=== PATIENT | female | born 1985 | race Caucasian/White ===

== ENCOUNTER 2023-02-20 12:17 | Emergency (ER) | payer OTHER, SELFPAY ==
[2023-02-20 12:25] VITALS: PULSE 64; RESP 23; O2SAT 100
[2023-02-20 12:29] VITALS: BP 138/80; PULSE 63; RESP 16; TEMP 36.4; O2SAT 100; BMI 25.0
--- NOTE | 2023-02-20 12:29 | DI.RAD.S_ITS ---
PROCEDURE: XR CHEST 1V INDICATIONS: chest pain TECHNIQUE: One view of the chest was acquired. COMPARISON: None. FINDINGS: Surgical changes and devices: None. Lungs and pleura: Lungs are clear. No pleural effusions or pneumothorax. Mediastinum: Mediastinal contours appear normal. Heart size is normal. Bones and chest wall: No suspicious bony lesions. Overlying soft tissues appear unremarkable. IMPRESSION: No evidence acute pulmonary process. Dictated by: Zach Hayes M.D. on 02/20/2023 at 12:51 Approved by: Zach Hayes M.D. on 02/20/2023 at 12:52
[2023-02-20 12:30] VITALS: BP 128/80; PULSE 59; RESP 20; O2SAT 99
--- NOTE | 2023-02-20 12:32 | ED_ITS ---
HPI - Chest Pain General Chief Complaint: Chest Pain Stated Complaint: chest pains/nurse refferred Time Seen by Provider: 02/20/23 12:32 History of Present Illness HPI narrative: Patient is a 37-year-old female without significant past medical history presents today with epigastric pain. He reports ongoing for the last 2-3 days. She says every time she eats or drinks within 2nd she has pain in her right upper quadrant underneath her ribs. However today she noticed with coffee and water she feels like she has a lump in her epigastric region. It constant in nature it does not radiate. Denies any palpitations. No nausea or vomiting. He tried to take Tums 2 days ago did not feel that it was very helpful she took some naproxen also not very helpful. Pain does not change or worsen with any sort of position. Related Data Previous Rx's Medication Instructions Recorded omeprazole 20 mg capsule,delayed 20 mg PO DAILY #30 caps 02/20/23 release Patient History Social History Smoking Status: Never smoker Exam Narrative Exam Narrative: GENERAL: Alert pleasant 37-year-old female HEENT: Head atraumatic,EOMI, pupils reactive, face symmetric, moist mucous membranes CARDIOVASCULAR: Regular rate and rhythm without murmurs, rubs or gallops. RESPIRATORY: Breath sounds equal bilaterally, no wheezes rales or rhonchi. ABDOMEN: Soft, nontender. Normoactive bowel sounds all 4 quadrants. No guarding or rebound. No right upper quadrant minimal epigastric pain EXTREMITIES: Normal range of motion, no clubbing or edema. Neurovascularly intact NEUROLOGICAL: Alert and oriented x4.Normal gait and speech. SKIN: Warm, dry, no laceration, no petechiae, no rashes or lesions. Initial Vital Signs Initial Vital Signs: Vital Signs Pulse Rate 64 02/20/23 12:25 Respiratory Rate 23 02/20/23 12:25 Pulse Oximetry 100 02/20/23 12:25 Scores HEART Score Heart Score history: Slightly Suspicious Heart Score EKG: Normal Heart Score Age: < 45 years old Heart Score risk factors: No known risk factors Heart Score troponin: < or = to normal limit Heart Score Total: 0 PERC Score Age greater than or equal to 50 years: No Heart rate greater than or equal to 100 bpm: No Room Air O2 Sat less than 95%: No Unilateral leg swelling: No Recent trauma or surgery: No Hemoptysis: No Prior PE or DVT: No Hormone Use: No Total PERC Score: 0 Course Orders Ordered: ED Orders 02/20/23 12:27 Complete Blood Count AUTO DIFF Stat Comprehensive Metabolic Panel Stat Lipase Stat Magnesium Stat PTT Partial Thromboplastin Carlitos Stat Prothrombin Time INR Stat Troponin & CK Cardiac Panel Stat 02/20/23 12:29 XR chest 1V Stat EKG-12 Lead Stat 02/20/23 12:52 US abdomen limited Stat Discontinued Medications Aspirin (Aspirin 81 Mg Chew Tab) 324 mg PO NOW ONE Stop: 02/20/23 12:30 Last Admin: 02/20/23 12:53 Dose: 324 mg Documented By: SAILAJA Ketorolac Tromethamine (Ketorolac 30 Mg/Ml Vial) 15 mg IV NOW ONE Stop: 02/20/23 12:53 Last Admin: 02/20/23 12:56 Dose: 15 mg Documented By: SAILAJA Pantoprazole Sodium (Pantoprazole 40 Mg Vial) 40 mg IV NOW ONE Stop: 02/20/23 12:53 Last Admin: 02/20/23 12:57 Dose: 40 mg Documented By: SAILAJA Vital Signs Vital signs: Vital Signs - 8 hr 02/20/23 12:25 02/20/23 12:29 02/20/23 12:30 Temperature 97.6 F Pulse Rate 64 63 59 L Respiratory Rate 23 16 20 Blood Pressure 138/80 Pulse Oximetry 100 100 99 Oxygen Delivery Method Room Air 02/20/23 12:30 02/20/23 13:00 02/20/23 13:00 Temperature Pulse Rate 68 Respiratory Rate 20 Blood Pressure 128/80 121/84 Pulse Oximetry 100 Oxygen Delivery Method 02/20/23 13:30 02/20/23 13:30 02/20/23 14:00 Temperature Pulse Rate 59 L 56 L Respiratory Rate 20 16 Blood Pressure 112/79 119/72 Pulse Oximetry 98 Oxygen Delivery Method Room Air MDM - Chest Pain Lab Data 02/20/23 12:27 02/20/23 12:27 Labs: Lab Results 02/20/23 Range/Units 12:27 WBC 8.8 (4.5-11.0) X10^3/uL RBC 4.58 (4.0-5.2) X10^6/uL Hgb 13.2 (12.0-16.0) g/dL Hct 38.7 (36-46) % MCV 84.5 (80-100) fL MCH 28.8 (26-34) PG MCHC 34.1 (30-36) % RDW 12.8 (11.6-14.8) % Plt Count 277 (150-400) X10^3/uL Neut % (Auto) 65.0 (50-75) % Lymph % (Auto) 26.9 (25-40) % Henderson % (Auto) 5.4 (3-14) % Eos % (Auto) 1.5 L (2-4) % Baso % (Auto) 1.2 (0-2) % Neut # (Auto) 5700 (7970-0216) /uL Lymph # (Auto) 2400 (3771-9554) /uL Henderson # (Auto) 500 (0-900) /uL Eos # (Auto) 100 (0-450) /uL Baso # (Auto) 100 (0-100) /uL PT 13.3 H (10.1-12.7) SECONDS INR 1.2 (0.9-1.3) APTT 35 (26-36) SECONDS Sodium 136 L (137-145) mmol/L Potassium 3.7 (3.4-5.1) mmol/L Chloride 98 (98-107) mmol/L Carbon Dioxide 29 (22-32) mmol/L BUN 17 (7-17) mg/dL Creatinine 0.72 (0.52-1.04) mg/dL Estimated GFR > 60 (>60) mL/min BUN/Creatinine Ratio 23.6 H (6-22) Glucose 109 H (70-100) mg/dL Calcium 9.7 (8.4-10.2) mg/dL Magnesium 1.8 (1.6-2.3) mg/dL Total Bilirubin 0.9 (0.2-1.3) mg/dL AST 69 H (14-36) IU/L ALT 62 H (<35) IU/L Alkaline Phosphatase 59 (38-126) U/L Total Creatine Kinase 73 (30-135) U/L Troponin I < 0.012 (0.01-0.034) ng/mL Total Protein 8.2 (6.3-8.2) g/dL Albumin 4.7 (3.5-5.0) g/dL Globulin 3.5 (1.7-4.1) g/dL Albumin/Globulin Ratio 1.3 (1.0-2.8) Lipase 66 (23-300) U/L Imaging Data Chest x-ray: Radiologist's Impression: PROCEDURE: XR CHEST 1V INDICATIONS: chest pain TECHNIQUE: One view of the chest was acquired. COMPARISON: None. FINDINGS: Surgical changes and devices: None. Lungs and pleura: Lungs are clear. No pleural effusions or pneumothorax. Mediastinum: Mediastinal contours appear normal. Heart size is normal. Bones and chest wall: No suspicious bony lesions. Overlying soft tissues appear unremarkable. IMPRESSION: No evidence acute pulmonary process. Dictated by: Zach Hayes M.D. on 02/20/2023 at 12:51 US - abdomen: Radiologist's Impression: PROCEDURE: US ABDOMEN LIMITED INDICATIONS: RIGHT UPPER QUADRANT PAIN TECHNIQUE: Real-time scanning was performed of the abdominal and retroperitoneal organs, with image documentation. COMPARISON: None. FINDINGS: Liver: Liver is normal in size and homogeneous in echotexture. Gallbladder: Unremarkable. Biliary ducts: Intrahepatic bile ducts are non-dilated. Extrahepatic bile duct caliber measures 2 mm. Normal is 6-7 mm or less in diameter, or 10 mm or less post-cholecystectomy. Pancreas: Visualized portions of the pancreas are sonographically normal. IMPRESSION: Unremarkable right upper quadrant ultrasound. No gallbladder pathology. Dictated by: Benitez Jose M.D. on 02/20/2023 at 13:25 ECG Data Interpretation: Normal sinus rhythm rate 58 IN interval 134 QRS [address] changes MDM Narrative Medical decision making narrative: Patient healthy 37-year-old female presents today some epigastric pain. Her last couple days she is had some right upper quadrant pain which is definitely worse with eating and drinking. She is not tender on exam ultrasound is negative. Blood work has been reviewed overall reassuring without elevation in bilirubin all the liver enzymes are mildly elevated in the 60s. Chest x-ray EKG and troponin are all negative. She is a low risk heart score low risk perc score. I suspect since this is exacerbated with food and drink possibility of acid reflux. However she also reports that she has been on doxycycline for about 4-5 weeks for acne. This can cause esophagitis it may or may not be related as well. This can also cause pericarditis but she is not having signs or symptoms of pericarditis. Discharge Plan Departure Patient Disposition: Home Clinical Impression: Acid reflux Instructions: DI for Gastroesophageal Reflux Disease (GERD) Activity Restrictions/Additional Instructions: *You have been diagnosed with acid reflux *What to do: At this time I suspect that you have some acid reflux this may or may not be related to your doxycycline. Discusses the your provided. *Continue to take medications as directed Omeprazole 20 mg once daily *Follow up with your primary care provider in 2-3 days or call [phone] *Return to ER if you should have increasing pain nausea vomiting shortness of or any new, worsening or concerning symptoms Prescriptions: New omeprazole 20 mg capsule,delayed release(DR/EC) 20 mg PO DAILY Qty: 30 0RF Stand Alone Forms: Patient Portal/API
[2023-02-20 12:36] LABS: Add Manual Diff / Slide Review NO; Basophils Absolute Auto 100 /uL (0-100); Basophils Percent Auto 1.2 % (0-2); Eosinophils Absolute Auto 100 /uL (0-450); Eosinophils Percent Auto 1.5 % (2-4); Hematocrit 38.7 % (36-46); Hemoglobin 13.2 g/dL (12.0-16.0); Lymphocytes Absolute Auto 2400 /uL (1100-4500); Lymphocytes Percent Auto 26.9 % (25-40); Mean Corpuscular HGB Conc 34.1 % (30-36); Mean Corpuscular Hemoglobin 28.8 PG (26-34); Mean Corpuscular Volume 84.5 fL (80-100); Monocytes Absolute Auto 500 /uL (0-900); Monocytes Percent Auto 5.4 % (3-14); Neutrophils Absolute Auto 5700 /uL (1500-7000); Platelet Count 277 X10^3/uL (150-400); Red Blood Cell Count 4.58 X10^6/uL (4.0-5.2); Red Cell Distribution Width 12.8 % (11.6-14.8); White Blood Cell Count 8.8 X10^3/uL (4.5-11.0)
[2023-02-20 12:42] LABS: INR 1.2 (0.9-1.3); Prothrombin Time 13.3 SECONDS (10.1-12.7)
[2023-02-20 12:45] LABS: PTT Partial Thromboplastin Tim 35 SECONDS (26-36)
[2023-02-20 12:47] LABS: Alanine Aminotransferase 62 IU/L (<35); Albumin 4.7 g/dL (3.5-5.0); Albumin Globulin Ratio 1.3 (1.0-2.8); Alkaline Phosphatase 59 U/L (38-126); Aspartate Aminotransferase 69 IU/L (14-36); BUN Creatinine Ratio 23.6 (6-22); Bilirubin Total 0.9 mg/dL (0.2-1.3); Blood Urea Nitrogen 17 mg/dL (7-17); Calcium 9.7 mg/dL (8.4-10.2); Carbon Dioxide 29 mmol/L (22-32); Chloride 98 mmol/L (98-107); Creatine Kinase 73 U/L (30-135); Estimated Glomerular Filt Rate > 60 mL/min (>60); Globulin 3.5 g/dL (1.7-4.1); Glucose 109 mg/dL (70-100); HEMOLYSIS 18 (0-50); Lipase 66 U/L (23-300); Magnesium 1.8 mg/dL (1.6-2.3); Potassium 3.7 mmol/L (3.4-5.1); Sodium 136 mmol/L (137-145); Total Protein 8.2 g/dL (6.3-8.2)
--- NOTE | 2023-02-20 12:52 | DI.US.S_ITS ---
PROCEDURE: US ABDOMEN LIMITED INDICATIONS: RIGHT UPPER QUADRANT PAIN TECHNIQUE: Real-time scanning was performed of the abdominal and retroperitoneal organs, with image documentation. COMPARISON: None. FINDINGS: Liver: Liver is normal in size and homogeneous in echotexture. Gallbladder: Unremarkable. Biliary ducts: Intrahepatic bile ducts are non-dilated. Extrahepatic bile duct caliber measures 2 mm. Normal is 6-7 mm or less in diameter, or 10 mm or less post-cholecystectomy. Pancreas: Visualized portions of the pancreas are sonographically normal. IMPRESSION: Unremarkable right upper quadrant ultrasound. No gallbladder pathology. Dictated by: Benitez Jose M.D. on 02/20/2023 at 13:25 Approved by: Benitez Jose M.D. on 02/20/2023 at 13:26
[2023-02-20] MEDS: ASPIRIN 81 MG CHEW TAB 324 MG PO (12:53)
[2023-02-20] MEDS: KETOROLAC 30 MG/ML VIAL 15 MG IV (12:56)
[2023-02-20 12:57] LABS: Troponin I < 0.012 ng/mL (0.01-0.034)
[2023-02-20] MEDS: PANTOPRAZOLE 40 MG VIAL IV (12:57)
[2023-02-20 13:00] VITALS: BP 121/84; PULSE 68; RESP 20; O2SAT 100
--- NOTE | 2023-02-20 13:08 | PC.NURSE ---
US at bedside
[2023-02-20 13:30] VITALS: BP 112/79; PULSE 59; RESP 20
[2023-02-20 14:00] VITALS: BP 119/72; PULSE 56; RESP 16; O2SAT 98
== END 2023-02-20 14:13 | disposition home or self-care (01) ==
PROVIDERS: Emergency Provider Emergency Medicine
DX: K21.9 Gastro-esophageal reflux disease without esophagitis (principal); R07.9 Chest pain, unspecified
CPT/HCPCS: 36415; 71045; 76705; 80053; 82550; 83690; 83735; 84484; 85025; 85610; 85730; 93005; 93010; 96374; 96375; 99284; C9113; J1885

== ENCOUNTER → 2024-05-07 09:17 | Outpatient (CLI) | payer OTHER, SELFPAY ==
[2024-05-07 09:56] LABS: Hematocrit 38.9 % (36-46); Hemoglobin 13.2 g/dL (12.0-16.0); Mean Corpuscular HGB Conc 33.8 % (30-36); Mean Corpuscular Volume 85.7 fL (80-100); Platelet Count 343 X10^3/uL (150-400); Red Blood Cell Count 4.54 X10^6/uL (4.0-5.2); Red Cell Distribution Width 12.6 % (11.6-14.8); White Blood Cell Count 6.8 X10^3/uL (4.5-11.0)
[2024-05-07 10:10] LABS: Hemoglobin A1C% w Est Avg Glu 4.8 % (4.0-6.0)
[2024-05-07 11:06] LABS: Alanine Aminotransferase 43 IU/L (<35); Albumin 4.7 g/dL (3.5-5.0); Albumin Globulin Ratio 1.7 (1.0-2.8); Alkaline Phosphatase 53 U/L (38-126); Aspartate Aminotransferase 43 IU/L (14-36); Bilirubin Total 1.1 mg/dL (0.2-1.3); Blood Urea Nitrogen 17 mg/dL (7-17); Calcium 9.7 mg/dL (8.4-10.2); Carbon Dioxide 29 mmol/L (22-32); Chloride 101 mmol/L (98-107); Cholesterol 177 mg/dL (140-199); Estimated Glomerular Filt Rate > 60 mL/min (>60); Globulin 2.7 g/dL (1.7-4.1); Glucose 96 mg/dL (70-100); HDL Cholesterol 87 mg/dL (40-60); HEMOLYSIS < 15 (0-50); LDL Cholesterol Calculated 80 mg/dL (<100); Potassium 4.1 mmol/L (3.4-5.1); Sodium 137 mmol/L (137-145); Total Protein 7.4 g/dL (6.3-8.2); Triglycerides 50 mg/dL (35-150)
[2024-05-07 11:37] LABS: Ferritin 30 ng/mL (6-137)
[2024-05-08 09:39] LABS: Insulin Level Total 5.4 uIU/mL (2.6-24.9)
== END ==
PROVIDERS: PCP Family Medicine; Referring Provider Family Medicine; Visit Provider Family Medicine
DX: N92.4 Excessive bleeding in the premenopausal period (principal); E65 Localized adiposity; Z51.81 Encounter for therapeutic drug level monitoring; Z83.3 Family history of diabetes mellitus; E88.810 Metabolic syndrome; E66.9 Obesity, unspecified
CPT/HCPCS: 36415; 80053; 80061; 82627; 82728; 83036; 83525; 85027

== ENCOUNTER → 2024-06-06 07:44 | Outpatient (CLI) | payer OTHER, SELFPAY ==
--- NOTE | 2024-06-06 07:46 | DI.MG.S_ITS ---
BILATERAL DIGITAL SCREENING MAMMOGRAM 3D/2D WITH CAD: 06/06/2024 CLINICAL: Baseline exam. Routine screening. No prior exams were available for comparison. The breasts are heterogeneously dense, which may obscure small masses (category c / 51-75% glandular tissue). Current study was also evaluated with a Computer Aided Detection (CAD) system. No significant masses, calcifications, or other findings are seen in either breast. IMPRESSION: NEGATIVE There is no mammographic evidence of malignancy. A 1 year screening mammogram is recommended. Based on the Tyrer Cuzick model (a risk assessment model) the patient's lifetime risk is 12.5% and her 10 year risk is 1.7%. According to the ACR, ACS, and NCCN guidelines, an annual breast MRI exam along with mammogram is recommended if the patient's lifetime risk is 20% or greater. This exam was interpreted at Station ID: [id number]. NOTE: For mammograms, a report in lay terms will be sent to the patient. Approximately 15% of breast malignancies will not be visualized mammographically. In the management of a palpable breast mass, a negative mammogram must not discourage biopsy of a clinically suspicious lesion. Electronically Signed By: Jerry ramirez/dino:06/07/2024 08:04:04 letter sent: Normal Exam ACR BI-RADS Category 1: Negative
== END ==
PROVIDERS: PCP Family Medicine; Referring Provider Family Medicine; Visit Provider Family Medicine
DX: Z12.31 Encounter for screening mammogram for malignant neoplasm of breast (principal); R92.333 Mammographic heterogeneous density, bilateral breasts
CPT/HCPCS: 77063; 77067

== ENCOUNTER 2024-09-23 02:38 | Emergency (ER) | payer OTHER, SELFPAY ==
--- NOTE | 2024-09-23 02:43 | ED.GENADULT ---
HPI - General Adult General Chief complaint: Animal Bite Stated complaint: Possible rabies exposure Time Seen by Provider: 09/23/24 02:42 History of Present Illness HPI narrative: 40-year-old female no significant past medical history presents to the emergency department from home for evaluation about exposure, she states that she awoke and there was a bat flying in the room, this was at around 2:00 a.m.. Denies any exposure to this, no history of rabies immunoglobulin and rabies vaccine. Denies any symptoms at this time. Patient denies any other symptoms at this time. Related Data Allergies Allergy/AdvReac Type Severity Reaction Status Date / Time Sulfa (Sulfonamide Allergy Verified 09/23/24 02:51 Antibiotics) Review of Systems Review of Systems Narrative: General: Positive bad exposure Denies fever, chills, weight loss HEENT: Denies headache, eye drainage, eye irritation, head trauma, sore throat, voice change Cardiovascular: Denies any chest pain, palpitations, tachycardia Respiratory: Denies any shortness of breath, cough, wheeze, stridor GI/: Denies any abdominal pain, nausea, vomiting, diarrhea, bright red blood per rectum, melanotic stools, urinary frequency, urinary retention, dysuria, hematuria MSK: Denies any joint pain, muscle pains, swelling Skin: Denies any rashes, lesions, discoloration Neuro: Denies any headache, lightheadedness, dizziness, fainting, weakness Psych: Denies SI/HI Patient History Social History Smoking Status: Never smoker Exam Narrative Exam Narrative: General: Cooperative, well-developed, not in acute distress HEENT: Normocephalic, atraumatic, PERRLA, normal sclera, eyelids normal Neck: Active full range of motion, atraumatic Chest: Normal to inspection, negative crepitus, no overlying erythema ecchymosis Respiratory: Normal respiratory effort, not in acute respiratory distress, clear to auscultation bilaterally negative cough, wheeze, tachypnea, rhonchi, rales Cardiology: Regular rate rhythm negative gallop, murmur, rubs GI/: No tenderness to palpation, soft, non rigid, normal to inspection, exam deferred MSK: Full active range of motion in all 4 extremities, atraumatic, no tenderness to palpation of any bony prominences Skin: No rashes or lesions noted Neuro: Alert awake oriented x3, moves all 4 extremities spontaneously, cranial nerves intact, able to answer all questions appropriately follows commands appropriately Psych: Cooperative, negative suicidal or homicidal ideations Initial Vital Signs Initial Vital Signs: Vital Signs Temperature 98.4 F 09/23/24 02:52 Pulse Rate 64 09/23/24 02:52 Respiratory Rate 15 09/23/24 02:52 Blood Pressure 117/77 09/23/24 02:52 Pulse Oximetry 100 09/23/24 02:52 Oxygen Delivery Method Room Air 09/23/24 02:52 Course Orders Ordered: Discontinued Medications Rabies Immune Globulin (Rabies Immune Globulin 300 Unit/Ml 3ml Vial) 1,400 unit IM NOW ONE Stop: 09/23/24 02:54 Rabies Vaccine (Rabies Vaccine (Rabavert) 2.5 Units Syringe) 2.5 units IM .ONCE ONE Stop: 09/23/24 02:49 Vital Signs Vital signs: Vital Signs - 8 hr 09/23/24 02:52 Temperature 98.4 F Pulse Rate 64 Respiratory Rate 15 Blood Pressure 117/77 Pulse Oximetry 100 Oxygen Delivery Method Room Air Medical Decision Making Differential Diagnosis Differential Diagnosis: Rabies exposure, bat exposure MDM Narrative Medical decision making narrative: 40-year-old female without any significant past medical history presents to the emergency department from home for evaluation about exposure, states that she woke up to a bat flying around the room at around 8:00 p.m.. Denies any contact with a bad, no history of immunoglobulin or rabies vaccines previously. Given the fact that patient woke up to a bat it was recommended that patient obtain immunoglobulin and rabies series, she verbalized understanding risks benefits of this, patient decided to proceed with immunoglobulin and vaccine series, she understands need for return to complete rabies series. Strict return precautions given verbalized understanding of this and agrees to being discharged home with outpatient follow up Discharge Plan Departure Patient Disposition: Home Clinical Impression: Encounter for prophylactic rabies immune globin Instructions: DI for Rabies Vaccine Activity Restrictions/Additional Instructions: You have received your first dose of the Rabies vaccine today [09.23.24] please come back on the following days for the additional vaccine series: Day 3: [6.1.25] Day 7: [6..25] Day 14: [..] Please follow up with the primary care doctor Please read the discharge instructions sheet carefully and bring all papers to all doctor follow-up visits, as it may contain information that your doctor may want to see. Disease processes change and evolve, if your symptoms worsen or if you develop any new symptoms that are concerning to you please return for evaluation. Your evaluation today does not show any evidence of any life-threatening/serious illnesses requiring admission to the hospital or surgery. Please follow-up with your doctor for re-evaluation in approximately 1 day. Seek immediate medical attention for any worrisome symptoms. *If you do not have a primary care provider please contact the [facility] Resource line at [phone]. They will ask some questions about your medical history and help get you set up with a doctor in the community. Stand Alone Forms: Patient Portal/API/Survey
[2024-09-23 02:52] VITALS: BP 117/77; PULSE 64; RESP 15; TEMP 36.9; O2SAT 100; BMI 25.0
[2024-09-23] MEDS: RABIES VACCINE (RABAVERT) 2.5 UNITS SYRINGE IM (03:24)
[2024-09-23] MEDS: RABIES IMMUNE GLOBULIN 150 UNIT/ML 1440 UNIT IM (03:27)
--- NOTE | 2024-09-23 04:03 | PC.NURSE ---
Pt became light headed and dizzy with the administration of Rabies immunoglobulin. pt's bp dropped to 84/45. layed patient back, pt slowed her breathing. Blood pressure back up to 103/56 and feeling better. provider aware
[2024-09-23 04:05] VITALS: BP 103/56; PULSE 68; RESP 16; O2SAT 98
== END 2024-09-23 04:06 | disposition home or self-care (01) ==
PROVIDERS: Emergency Provider Student in an Organized Health Care Education/Training Program
DX: Z20.3 Contact with and (suspected) exposure to rabies (principal); Z23 Encounter for immunization
CPT/HCPCS: 90377; 90471; 90675; 96372; 99283

== ENCOUNTER 2024-09-26 16:08 | Emergency (ER) | payer OTHER, SELFPAY ==
[2024-09-26 16:13] VITALS: BP 117/70; PULSE 64; RESP 16; TEMP 36.8; O2SAT 100; BMI 25.3
[2024-09-26] MEDS: RABIES VACCINE (RABAVERT) 2.5 UNITS SYRINGE IM (16:47)
--- NOTE | 2024-09-26 18:00 | ED.RECABL ---
HPI - Recheck/Abnormal Lab/Rx General Chief Complaint: Recheck/Abnormal Lab/Rx Stated Complaint: Need Rabies Shot #2 Time Seen by Provider: 09/26/24 17:56 Source: patient Mode of arrival: Ambulatory History of Present Illness HPI narrative: 39-year-old female here for 2nd rabies shot, had slept in household were bat was, no bites or injuries known. She had received her 1st rabies shot, here for 2nd shot, neck shot due 09/30/2024. Related Data Home Medications Medication Instructions Recorded Confirmed benzoyl peroxide 5 % topical 1 applic topical QAM 04/02/24 06/01/24 cleanser clindamycin phosphate 1 % lotion 1 applic topical QAM 04/02/24 06/01/24 spironolactone 50 mg tablet 50 mg PO ONCE PM 04/02/24 06/01/24 sumatriptan succinate 25 mg tablet 25 mg PO ONCE PRN migraine headache 04/02/24 06/01/24 Previous Rx's Medication Instructions Recorded albuterol sulfate 90 mcg/actuation 2 puff inhalation Q4-6H PRN 06/01/24 aerosol inhaler shortness of breath or wheezing #8.5 grams dexamethasone 2 mg tablet 2 mg PO DAILY PRN URI wheeze #6 06/01/24 tabs Allergies Allergy/AdvReac Type Severity Reaction Status Date / Time Sulfa (Sulfonamide AdvReac Intermediate Hives Verified 09/26/24 16:13 Antibiotics) Patient History Medical History (Updated 09/26/24 @ 18:03 by Dominic Purcell MD) Asthma (~1999) Anxiety (~1999) Chicken pox Migraine headache with aura Acne vulgaris Therapeutic drug monitoring Family history of diabetes mellitus (DM) Surgical History (System 09/23/24 @ 10:45 by Rodrigo Cobos) Anesthesia History of section Family History (System 09/23/24 @ 10:45 by Rodrigo Cobos) Father Hypertension Mental health problem Mother Hyperlipidemia Sister Mental health problem Grandmother Diabetes mellitus History of heart disease Stroke Grandfather History of heart disease Grandmother Mental health problem Social History (System 09/23/24 @ 10:45 by Rodrigo Cobos) alcohol intake: current (2-3 drinks per week ) substance use type: does not use alcohol intake frequency: 0-2 drinks per day Exam Narrative Exam Narrative: GENERAL: No distress, cooperative HEAD: Atraumatic. Normocephalic. EYES: Pupils equal round and reactive. Extraocular motions intact. No scleral icterus. No injection or drainage. ENT: Nose without bleeding, purulent drainage. Airway patent. NECK: Trachea midline. CARDIOVASCULAR: Regular rate and rhythm without murmurs, gallops, or rubs. RESPIRATORY: Clear to auscultation. Breath sounds equal bilaterally. No wheezes, rales, or rhonchi. EXTREMITIES: No edema or joint tenderness. Neuro: Alert, cooperative, grossly nonfocal. SKIN: No rash or erythema of visible areas Initial Vital Signs Initial Vital Signs: Vital Signs Temperature 98.3 F 09/26/24 16:13 Pulse Rate 64 09/26/24 16:13 Respiratory Rate 16 09/26/24 16:13 Blood Pressure 117/70 09/26/24 16:13 Pulse Oximetry 100 09/26/24 16:13 Oxygen Delivery Method Room Air 09/26/24 16:13 Course Orders Ordered: Discontinued Medications Rabies Vaccine (Rabies Vaccine (Rabavert) 2.5 Units Syringe) 2.5 units IM .ONCE ONE Stop: 09/26/24 16:30 Last Admin: 09/26/24 16:47 Dose: 2.5 units Documented By: CELI Vital Signs Vital signs: Vital Signs - 8 hr 09/26/24 16:13 Temperature 98.3 F Pulse Rate 64 Respiratory Rate 16 Blood Pressure 117/70 Pulse Oximetry 100 Oxygen Delivery Method Room Air MDM - Recheck/Abnormal Lab/Rx MDM Narrative Medical decision making narrative: Here for 2nd rabies vaccination of series, next due 09/30/2024. Household bat exposure, no skin wound/bite wound known, rabies prophylaxis in progress. Feeling well. Had received initial rabies vaccination 3 days ago. IM rabies vaccine (Rabavert) given. Return for next dose 09/30/2024. Discharge Plan Departure Patient Disposition: Home Clinical Impression: Need for rabies vaccination Activity Restrictions/Additional Instructions: Here for 2nd rabies vaccination after bat noted in household. No known bite wounds but possible exposure by history. Had 1st vaccination. 2nd rabies vaccine given. Next vaccine due 09/30/2024. Prescriptions: No Action dexamethasone 2 mg tablet 2 mg PO DAILY PRN (Reason: URI wheeze) Qty: 6 0RF Rx Instructions: Take at onset of sx daily for 2-3 days albuterol sulfate 90 mcg/actuation HFA aerosol inhaler 2 puff inhalation Q4-6H PRN (Reason: shortness of breath or wheezing) Qty: 8.5 5RF spironolactone 50 mg tablet 50 mg PO ONCE PM benzoyl peroxide 5 % cleanser 1 applic topical QAM clindamycin phosphate 1 % lotion 1 applic topical QAM sumatriptan succinate 25 mg tablet 25 mg PO ONCE PRN (Reason: migraine headache) Rx Instructions: 1 migraine/3 months Referrals: Wanda Rene DO [Primary Care Provider] - Stand Alone Forms: Patient Portal/API/Survey
[2024-09-26 18:05] VITALS: BP 118/76; PULSE 56; RESP 14; O2SAT 100
== END 2024-09-26 18:07 | disposition home or self-care (01) ==
PROVIDERS: Emergency Provider Emergency Medicine; PCP Family Medicine
DX: Z23 Encounter for immunization (principal); Z20.3 Contact with and (suspected) exposure to rabies
CPT/HCPCS: 90471; 90675; 99283

== ENCOUNTER 2024-09-30 20:42 | Emergency (ER) | payer OTHER, SELFPAY ==
[2024-09-30 22:11] VITALS: BP 117/59; PULSE 67; RESP 16; TEMP 36.1; O2SAT 100; BMI 25.0
--- NOTE | 2024-09-30 22:16 | ED.RECABL ---
HPI - Recheck/Abnormal Lab/Rx General Chief Complaint: Recheck/Abnormal Lab/Rx Stated Complaint: rabie vac Time Seen by Provider: 09/30/24 22:16 Source: patient, RN notes reviewed and old records reviewed Mode of arrival: Ambulatory Limitations: no limitations History of Present Illness HPI narrative: 39-year-old female here for her 3rd rabies shot, had slept at a household where a bat was found with no known bites or injury. Has received 2 prior shots was due for her 3rd today onset 09/30/2024. Patient due for final shot on 10/07/2024. Related Data Home Medications ?Medication ?Instructions ?Recorded ?Confirmed benzoyl peroxide 5 % topical 1 applic topical QAM 04/02/24 06/01/24 cleanser clindamycin phosphate 1 % lotion 1 applic topical QAM 04/02/24 06/01/24 spironolactone 50 mg tablet 50 mg PO ONCE PM 04/02/24 06/01/24 sumatriptan succinate 25 mg tablet 25 mg PO ONCE PRN migraine headache 04/02/24 06/01/24 Previous Rx's ?Medication ?Instructions ?Recorded albuterol sulfate 90 mcg/actuation 2 puff inhalation Q4-6H PRN 06/01/24 aerosol inhaler shortness of breath or wheezing #8.5 grams dexamethasone 2 mg tablet 2 mg PO DAILY PRN URI wheeze #6 06/01/24 tabs Allergies Allergy/AdvReac Type Severity Reaction Status Date / Time Sulfa (Sulfonamide AdvReac Intermediate Hives Verified 09/30/24 22:11 Antibiotics) Review of Systems Review of Systems ROS Unobtainable: All systems reviewed & are unremarkable except as noted in HPI and below Patient History Medical History Asthma (~1999) Anxiety (~1999) Chicken pox Migraine headache with aura Acne vulgaris Therapeutic drug monitoring Family history of diabetes mellitus (DM) Surgical History Anesthesia History of section Family History Father Hypertension Mental health problem Mother Hyperlipidemia Sister Mental health problem Grandmother Diabetes mellitus History of heart disease Stroke Grandfather History of heart disease Grandmother Mental health problem Social History Smoking Status: Never smoker alcohol intake: current (2-3 drinks per week ) substance use type: does not use Smoking Status: Never smoker alcohol intake frequency: 0-2 drinks per day Exam Narrative Exam Narrative: GENERAL: Alert and oriented x three, female in no acute distress HEENT: Head normocephalic, atraumatic, EOMI, pupils reactive, face symmetric, moist mucous membranes NECK: Supple, full range of motion CARDIOVASCULAR: Regular rate and rhythm without murmurs, rubs or gallops. RESPIRATORY: Breath sounds equal bilaterally, no wheezes rales or rhonchi. ABDOMEN: Soft, nontender. Normoactive bowel sounds all 4 quadrants. No guarding or rebound, rigidity, no mass EXTREMITIES: Normal range of motion, no clubbing or edema. Neurovascularly intact NEUROLOGICAL: Cranial nerves II through XII grossly intact. Moving all extremities SKIN: Warm, dry, no petechiae, no rashes or lesions. Initial Vital Signs Initial Vital Signs: Vital Signs Temperature 97.0 F L 09/30/24 22:11 Pulse Rate 67 09/30/24 22:11 Respiratory Rate 16 09/30/24 22:11 Blood Pressure 117/59 L 09/30/24 22:11 Pulse Oximetry 100 09/30/24 22:11 Oxygen Delivery Method Room Air 09/30/24 22:11 Course Orders Ordered: Discontinued Medications Rabies Vaccine (Rabies Vaccine (Rabavert) 2.5 Units Syringe) 2.5 units IM .ONCE ONE Stop: 09/30/24 22:17 Last Admin: 09/30/24 22:41 Dose: 2.5 units Documented By: RERE Vital Signs Vital signs: Vital Signs - 8 hr 09/30/24 22:11 Temperature 97.0 F L Pulse Rate 67 Respiratory Rate 16 Blood Pressure 117/59 L Pulse Oximetry 100 Oxygen Delivery Method Room Air MDM - Recheck/Abnormal Lab/Rx MDM Narrative Medical decision making narrative: 39-year-old female for her 3rd rabies vaccination. Doing well no concerns or complications. Discussed her next upcoming shot and return precautions. Discharge Plan Departure Patient Disposition: Home Clinical Impression: Encounter for prophylactic rabies immune globin Instructions: DI for Rabies Vaccine Activity Restrictions/Additional Instructions: You are due for your final dose of rabies vaccine on 10/07/2024. Please return if you have any other new or concerning changes in the interim. Prescriptions: No Action dexamethasone 2 mg tablet 2 mg PO DAILY PRN (Reason: URI wheeze) Qty: 6 0RF Rx Instructions: Take at onset of sx daily for 2-3 days albuterol sulfate 90 mcg/actuation HFA aerosol inhaler 2 puff inhalation Q4-6H PRN (Reason: shortness of breath or wheezing) Qty: 8.5 5RF spironolactone 50 mg tablet 50 mg PO ONCE PM benzoyl peroxide 5 % cleanser 1 applic topical QAM clindamycin phosphate 1 % lotion 1 applic topical QAM sumatriptan succinate 25 mg tablet 25 mg PO ONCE PRN (Reason: migraine headache) Rx Instructions: 1 migraine/3 months Referrals: Wanda Rene DO [Primary Care Provider, Medical] Stand Alone Forms: Patient Portal/API
[2024-09-30] MEDS: RABIES VACCINE (RABAVERT) 2.5 UNITS SYRINGE IM (22:41)
== END 2024-09-30 22:52 | disposition home or self-care (01) ==
PROVIDERS: Emergency Provider Emergency Medicine; PCP Family Medicine
DX: Z20.3 Contact with and (suspected) exposure to rabies (principal); Z23 Encounter for immunization
CPT/HCPCS: 90471; 90675; 99283

== ENCOUNTER 2024-10-07 21:16 | Emergency (ER) | payer OTHER, SELFPAY ==
[2024-10-07 21:20] VITALS: BP 106/68; PULSE 75; RESP 18; TEMP 36.9; O2SAT 100; BMI 25.0
[2024-10-07] MEDS: RABIES VACCINE (RABAVERT) 2.5 UNITS SYRINGE IM (21:37)
--- NOTE | 2024-10-07 22:21 | ED_ITS ---
HPI - Recheck/Abnormal Lab/Rx General Chief Complaint: Recheck/Abnormal Lab/Rx Stated Complaint: Last Rabies Shot Needed Time Seen by Provider: 10/07/24 22:21 Source: patient Mode of arrival: Ambulatory History of Present Illness HPI narrative: 39-year-old woman presents for 5th and final rabies vaccination after being exposed on September 23. No issues or concerns she has tolerated previous injections Related Data Home Medications ?Medication ?Instructions ?Recorded ?Confirmed benzoyl peroxide 5 % topical 1 applic topical QAM 10/1906/01/24 cleanser clindamycin phosphate 1 % lotion 1 applic topical QAM 04/02/24 06/01/24 spironolactone 50 mg tablet 50 mg PO ONCE PM 04/02/24 06/01/24 sumatriptan succinate 25 mg tablet 25 mg PO ONCE PRN m igraine headache 04/02/24 06/01/24 Previous Rx's ?Medication ?Instructions ?Recorded albuterol sulfate 90 mcg/actuation 2 puff inhalation Q 4-6H PRN 06/01/24 aerosol inhaler shortness of breath or wheez ing #8.5 grams dexamethasone 2 mg tablet 2 mg PO DAILY PRN URI wheeze #6 06/01/24 tabs Allergies Allergy/AdvReac Type Severity Reaction Status Date / Time Sulfa (Sulfonamide AdvReac Intermediate Hives Verified 10/07/24 21:23 Antibiotics) Patient History Medical History Asthma (~2000) Anxiety (~2000) Chicken pox Migraine headache with aura Acne vulgaris Therapeutic drug monitoring Family history of diabetes mellitus (DM) Surgical History Anesthesia History of section Family History Father Hypertension Mental health problem Mother Hyperlipidemia Sister Mental health problem Grandmother Diabetes mellitus History of heart disease Stroke Grandfather History of heart disease Grandmother Mental health problem Social History Smoking Status: Never smoker alcohol intake: current (2-3 drinks per week ) substance use type: does not use Smoking Status: Never smoker alcohol intake frequency: 0-2 drinks per day Exam Initial Vital Signs Initial Vital Signs: Vital Signs Temperature 98.4 F 10/07/24 21:20 Pulse Rate 75 10/07/24 21:20 Respiratory Rate 18 10/07/24 21:20 Blood Pressure 106/68 10/07/24 21:20 Pulse Oximetry 100 10/07/24 21:20 Oxygen Delivery Method Room Air 10/07/24 21:20 General: Alert appropriate in no acute distress Respiratory: Able to speak in full sentences, no obvious respiratory distress Skin: No obvious rashes, warm and dry Neurologic: Grossly intact no obvious asymmetries or abnormalities Psych: appropriate insight and affect, cooperative Course Orders Ordered: Discontinued Medications Rabies Vaccine (Rabies Vaccine (Rabavert) 2.5 Units Syringe) 2.5 units IM .ONCE ONE Stop: 10/07/24 21:28 Last Admin: 10/07/24 21:37 Dose: 2.5 units Documented By: MALCOLM Vital Signs Vital signs: Vital Signs - 8 hr 10/07/24 21:20 Temperature 98.4 F Pulse Rate 75 Respiratory Rate 18 Blood Pressure 106/68 Pulse Oximetry 100 Oxygen Delivery Method Room Air MDM - Recheck/Abnormal Lab/Rx MDM Narrative Medical decision making narrative: 39-year-old woman with final rabies immunization after exposure and 09/23. Tolerated injection without difficulty safe for discharge Discharge Plan Departure Patient Disposition: Home Clinical Impression: Need for rabies vaccination Activity Restrictions/Additional Instructions: Congratulations on completing the full series of rabies shots I wish you the best in avoiding vats and other possibly rapid animals in the future Prescriptions: No Action dexamethasone 2 mg tablet 2 mg PO DAILY PRN (Reason: URI wheeze) Qty: 6 0RF Rx Instructions: Take at onset of sx daily for 2-3 days albuterol sulfate 90 mcg/actuation HFA aerosol inhaler 2 puff inhalation Q4-6H PRN (Reason: shortness of breath or wheezing) Qty: 8.5 5RF spironolactone 50 mg tablet 50 mg PO ONCE PM benzoyl peroxide 5 % cleanser 1 applic topical QAM clindamycin phosphate 1 % lotion 1 applic topical QAM sumatriptan succinate 25 mg tablet 25 mg PO ONCE PRN (Reason: migraine headache) Rx Instructions: 1 migraine/3 months Referrals: Wanda Rene DO [Primary Care Provider, Medical] Stand Alone Forms: Patient Portal/API
[2024-10-07 22:26] VITALS: BP 107/72; PULSE 71; RESP 18; O2SAT 100
== END 2024-10-07 22:28 | disposition home or self-care (01) ==
PROVIDERS: Emergency Provider Emergency Medicine; PCP Family Medicine
DX: Z20.3 Contact with and (suspected) exposure to rabies (principal); Z23 Encounter for immunization
CPT/HCPCS: 90471; 90675; 99283